=== PATIENT | male | born 1980 | race Caucasian/White ===

== ENCOUNTER 2025-03-08 11:43 | Emergency (ER) | payer OTHER, SELFPAY ==
[2025-03-08 12:12] VITALS: BP 131/85
[2025-03-08 12:43] LABS: Hematocrit 44.9 % (39.0-52.0); Hemoglobin 15.2 g/dL (13.0-18.0); Mean Corp Hgb Conc. 33.9 g/dL (33.0-37.0); Mean Corpuscular Volume 82.4 fL (80.0-94.0); Nucleated Red Blood Cells % 0 % (-); Platelet Count 218 10^3/uL (130-400); Red Cell Dist. Width 13.0 % (11.5-14.5)
[2025-03-08 13:01] LABS: COVID-19 Antigen Negative (Negative)
[2025-03-08 13:08] LABS: ALT (SGPT) 79 U/L (0-50); AST (SGOT) 29 U/L (17-59); Albumin 4.4 g/dl (3.5-5.0); Alkaline Phosphatase 109 U/L (38-126); Blood Urea Nitrogen 14 mg/dl (9-20); Calcium 9.7 mg/dl (8.4-10.2); Carbon Dioxide 26 mmol/L (22-30); Chloride 105 mmol/L (98-107); Glucose 94 mg/dl (70-99); Potassium 4.7 mmol/L (3.5-5.1); Sodium 137 mmol/L (135-145); Total Protein 7.1 g/dl (6.3-8.2); eGFR > 60.00
[2025-03-08 15:15] VITALS: BP 142/86
--- NOTE | 2025-03-08 17:49 | ED.GENMED ---
History of Present Illness
General
Chief Complaint: Breathing Problem
Source: patient
Exam Limitations: none
Time Seen by Provider: 03/08/25 17:29
Nursing documentation reviewed up to this point in time: agreed with
History of Present Illness
History of Present Illness:
Patient is a 44-year-old male who presents to the emergency department for evaluation of fever and cough. Patient states he started with sore throat, nasal congestion, and dry cough a little over 1 week ago while he was travelling out [place]. He was
[facility] by [facility] and started on a course of amoxicillin for suspected bronchitis. Patient states cough has persisted and he now has a pain in his right mid chest which is worse with certain movements and inspiration. Patient states
that he was seen by an urgent care yesterday after arriving home from his trip where an x-ray showed no evidence of pneumonia however a possible enlargement of his heart. It was recommended that he follow-up with primary care provider for which he
made an appointment at [address] [place] [id number]. However�patient states he developed low-grade fevers at home last night prompting visit to the emergency department today.
Patient denies any shortness of breath. He denies any exertional chest pain. No or lower leg swelling or pain. He denies any personal/family history of blood clots or clotting disorders.
He has 2 days left in his amoxicillin prescription which was written for 500 mg twice daily X 1 week.
Past History
Past History
ED Past Medical History: GERD and Other (Chronic back pain)
ED Past Surgical History: Tonsilectomy
Social History
Tobacco: Non-smoker
Alcohol: Occasional
Drug: None
Personal:
Living: with family
Employment: Employed
Family History
Family History: Other (Noncontributory)
Review of Systems
Review of Systems
Allergies reviewed?: Yes
All Other Systems: ROS reviewed and negative except as documented in HPI and ROS
Phy Exam
Physical Exam
Physical Exam:
Vitals: Mildly hypertensive, otherwise vital signs stable. Afebrile
General: Patient is in no apparent distress
Skin: Warm and dry, no rashes or lesions. Subtle maculopapular rash across chest
Head: Normocephalic, atraumatic
Eyes: Sclera nonicteric.
Throat: Mild pharyngeal erythema. No tonsillar edema or exudates. Uvula midline. Protecting airway
Neck: Normal ROM, no cervical spine tenderness, no meningismus
Cardiac: Regular rate and rhythm, no murmurs. Significant reproducible tenderness in right mid chest/sternal border
Pulm: Normal respiratory effort. Lungs clear bilaterally. No wheeze
Abdomen: Abdomen soft and nontender.
Extremities: No evidence of cyanosis or edema. No tenderness or erythema of bilateral lower extremities. Negative Homans' sign bilaterally
Neuro: AAOx3. Grossly intact.
Psychiatric: Normal affect.
Scores
Heart Failure Risk
Heart Failure Risk Score: Not Applicable
PERC Rule Criteria
Age <50 years: Yes
HR <100 bpm: Yes
Room air oxygen sat >94%: Yes
History of DVT or PE: No
Recent trauma or surgery: No
Hemoptysis: No
Exogenous estrogen: No
Clinical signs suggestive of DVT: No
: No
Considered low risk for PE: Yes
PERC Score: 0
PE can be excluded by PERC: Yes
Course
Orders/Labs/Results
Orders:
Orders
03/08/25 12:17
CR Chest - 2 Views Urgent
Comment:
Reason For Exam: fever, cough, pain
03/08/25 12:26
COVID-19 Antigen Urgent
Source: Nasal Swab
Complete Blood Count/With Diff Urgent
Comprehensive Metabolic Panel Urgent
Influenza A+B Rapid Molecular Urgent
MICHAEL Source: Nasal Swab
Specimen Description:
03/08/25 18:08
Ketorolac [Toradol] 15 mg IM NOW STA
03/08/25 18:22
Electrocardiogram (*1) Urgent
Reason for Study: Chest Pain
EKG- Treatment ONCE
03/08/25 18:46
Acetaminophen [Tylenol] 650 mg PO NOW STA
03/08/25 19:18
Azithromycin [Zithromax] 500 mg PO NOW STA
Cefuroxime Axetil [Ceftin] 500 mg PO NOW STA
Abnormal Lab Results
03/08/25
12:26
Abs Immat Gran (auto) 0.1 H 10^3/uL
(0-0.05)
Absolute Neuts (auto) 6.9 H 10^3/uL
(1.4-6.5)
Absolute Monos (auto) 1.1 H 10^3/uL
(0.1-0.6)
Immature Gran % 1.2 H %
(0-0.5)
Lymphocytes % 14.0 L %
(20.5-51.1)
Monocytes % 11.7 H %
(1.7-9.3)
ALT 79 H U/L
(0-50)
03/08/25 12:26
03/08/25 12:26
Vital Signs
Initial and Last Documented VS:
Initial Vital Signs
Temp Pulse Resp BP Pulse Ox
99.5 F 96 16 131/85 93
03/08/25 12:12 03/08/25 12:12 03/08/25 12:12 03/08/25 12:12 03/08/25 12:12
Last Documented Vital Signs
Temp Pulse Resp BP Pulse Ox
99 F 98 28 140/98 96
03/08/25 20:15 03/08/25 20:15 03/08/25 20:15 03/08/25 20:08 03/08/25 20:15
MDM/Problems Addressed
Differential Diagnosis Includes:
Not limited to: Viral syndrome, bronchitis, pneumonia, pleurisy, costochondritis, muscle strain, zoster, etc.
MDM/Problems Addressed:
44-year-old male with 1.5 weeks of viral URI symptoms, now with persistent cough low-grade fevers, and pleuritic chest discomfort. No productive cough, hemoptysis, shortness of breath. Mildly hypertensive with otherwise stable vital signs on
arrival. On exam�patient well-appearing, in no apparent respiratory distress. Cardio/pulmonary assessment unremarkable. He does have point tenderness to right anterior chest wall without any ecchymoses or rash. No clinical evidence of DVT on
exam. Patient has almost completed a course of amoxicillin 500 mg twice daily. Prior to my evaluation basic labs were obtained without clinically significant abnormalities. Viral studies negative. Chest x-ray does show findings consistent with a
right lower lobe pneumonia.
An EKG was obtained for completeness which shows normal sinus rhythm without evidence of acute ischemic changes. Patient afebrile without leukocytosis or evidence of respiratory distress. He does not meet sepsis criteria. Ultimately�do not feel
admission indicated at this time. Suspect component of costochondritis as chest pain worse with coughing/movement. Patient has a PERC score of 0�do not suspect PE. Will plan to switch patient's antibiotic and add dual coverage with cefuroxime and
azithromycin. He did have improvement in right sided chest wall pain after Toradol in emergency department�recommended treatment with NSAIDs at home. He has inhaler that he will continue to use. Advised very strict return precautions and
follow-up with primary care later this week to ensure symptoms improving. Patient comfortable with plan. All questions answered.
Chronic conditions affecting care:
N/A
Acute Exacerbation and/or Progression of Chronic Illness:
N/A
*Radiology
Radiology exam reviewed: radiology read reviewed
*Pulse Oximetry
SaO2: 97
Oxygen Mode of Delivery: Room air
Patient hypoxic: no
*EKG
Interpreted by ED Provider?: Yes
EKG Intrepretation Date: 03/08/25
Interpretation: normal
Comparison EKG: no comparison EKG present
Heart Rate: 79
Rate: normal
Rhythm: sinus
[place]: normal axis
Interval: normal QT interval
QRS Pattern: normal QRS
Ischemia: no ischemia
*Isotope Technician Interpretation
Rate: Isotope Technician- N/A
*Critical Care Note
Total Time (30-74mins, 75-104mins- exclusive of procedures): Not Applicable
ED Attending Note
-
Portions of this chart may have been created with voice recognition software.� Occasional wrong word or��sound alike� substitutions may have occurred due to the inherent limitations of voice recognition software.
Discharge Plan
Departure
Patient Disposition: Home (Routine Discharge)
Date of Disposition: 03/08/25
Time of Disposition: 19:20
Patient with high blood pressure during this ER visit?: Yes
Discharge Problem:
Right lower lobe pneumonia, Acute chest wall pain
Instructions: Pneumonia in adults - ED discharge instructions, BLOOD PRESSURE
Prescriptions:
New
cefuroxime axetil 500 mg tablet
500 mg PO BID 5 Days Qty: 10 0RF
azithromycin [Zithromax] 250 mg tablet
250 mg PO DAILY 4 Days Qty: 4 0RF
No Action
cyclobenzaprine 10 MG tablet
10 mg PO TIDPRN PRN (Reason: pain)
ibuprofen 800 MG tablet
800 mg PO Q6HPRN PRN (Reason: pain)
prednisone 20 MG tablet
20 mg PO DAILY
omeprazole 20 MG capsule,delayed release(DR/EC)
20 mg PO DAILY
melatonin 10 MG tablet
10 mg PO HSPRN PRN (Reason: insomnia)
oxycodone-acetaminophen 5 MG/325 MG tablet
1 tab PO Q4HPRN PRN (Reason: pain) Qty: 15 0RF
diazepam 5 MG tablet
5 mg PO TIDPRN PRN (Reason: muscle spasm) Qty: 15 0RF
Patient Comments:
Pt using more frequently than prescribed
metaxalone [Skelaxin] 800 MG tablet
800 mg PO TID
albuterol sulfate [Proventil HFA] 90 MCG/PUFF HFA aerosol inhaler
1 puff inhalation Q4HPRN PRN (Reason: shortness of breath or cough) Qty: 1 0RF
Referrals:
Allan Eastman DO [Family Provider, Internal Medicine] - Follow up in 2-3 days
Activity Restrictions/Additional Instructions:
RETURN TO THE EMERGENCY DEPARTMENT ANY PERSISTENTLY ELEVATED FEVER, CHEST PAIN OR SHORTNESS OF BREATH/DIFFICULTY BREATHING, COUGHING UP BLOOD, SIGNIFICANT FATIGUE, WORSENING IN CURRENT SYMPTOMS, OR ANY OTHER CONCERNS
- As discussed�your chest x-ray showed evidence of pneumonia of your right lower lobe. Please discontinue the amoxicillin as a new antibiotic regimen has been sent to your pharmacy. You were given your initial doses today in the emergency
department and should resume tomorrow as instructed on prescription label.
-Continue to take Tylenol and/Advil as needed for chest wall pain as well as fever. Continue to use inhaler as instructed. It is important to stay well-hydrated.
- Follow-up with your primary care provider in a few days for further evaluation/management and to ensure that your symptoms are improving. You may require further imaging.
Monitor your symptoms closely and return to the emergency department with any acute worsening/new symptoms or any other concerns
Interventions
Interventions:
*Risk Screen - Suicide Last Done: 03/08/25 20:35
*General Assessment Last Done: 03/08/25 18:37
*Neglect/Abuse Screening Last Done: 03/08/25 18:37
*ED- Fall Risk Assessment Last Done: 03/08/25 18:37
*ED COVID-19 Vaccine History Last Done: 03/08/25 20:35
*Nursing Disposition Last Done: 03/08/25 20:35
ED- Cardiac Assessment Last Done: 03/08/25 18:36
ED- Pulmonary Assessment Last Done: 03/08/25 18:36
Discharge Date and Time
Discharge Date/Time: 03/08/25 20:36
Print Language: DJIBOUTIAN
[2025-03-08] MEDS: TORADOL 15 MG IM (18:36)
[2025-03-08] MEDS: TYLENOL 650 MG PO (19:06)
[2025-03-08 20:08] VITALS: BP 140/98
[2025-03-08] MEDS: CEFTIN 500 MG PO (20:14)
[2025-03-08] MEDS: ZITHROMAX 500 MG PO (20:14)
== END 2025-03-08 20:36 | disposition home or self-care (01) ==
LOC: EMR 11:43
PROVIDERS: Emergency Medicine; EMERGENCY PHYSICIAN Student in an Organized Health Care Education/Training Program; FAMILY PHYSICIAN Internal Medicine
DX: J18.9 Pneumonia, unspecified organism (principal); R07.89 Other chest pain; K21.9 Gastro-esophageal reflux disease without esophagitis
CPT/HCPCS: 99283; 96372; 71046; 80053; 85025; 87502; 87811; 93005

== ENCOUNTER → 2025-05-10 18:09 | Outpatient (REF) | payer OTHER, SELFPAY | LOC: RAD 18:09 | PROVIDERS: ATTENDING PHYSICIAN Nurse Practitioner Family | DX: J18.9 Pneumonia, unspecified organism (principal) | CPT/HCPCS: 71046 ==